=== PATIENT | male | born 1945 | race Caucasian/White ===

== ENCOUNTER 2017-05-07 08:33 | Day surgery (SDC) | payer OTHER ==
[~2017-05-07] VITALS: Ht 193 cm; Wt 108.9 kg
[2017-05-07 08:56] VITALS: BP 169/86
[2017-05-07 11:10] VITALS: BP 153/73
== END 2017-05-07 11:40 | disposition home or self-care (01) ==
LOC: GI 08:33 → OR 10:30 → GI 10:30
PROVIDERS: Internal Medicine Gastroenterology
PROC: 0DBN8ZZ Excision of Sigmoid Colon, Via Natural or Artificial Opening Endoscopic (ICD-10-PCS; principal; 2017-05-07 10:30)
PROC: 0DBP8ZZ Excision of Rectum, Via Natural or Artificial Opening Endoscopic (ICD-10-PCS; 2017-05-07 10:30)
DX: Z12.11 Encounter for screening for malignant neoplasm of colon (principal); D12.5 Benign neoplasm of sigmoid colon; K62.1 Rectal polyp; K64.8 Other hemorrhoids; Z80.0 Family history of malignant neoplasm of digestive organs
CPT/HCPCS: 45378; J1200; J1610; J2250; J2310; J3010; J3490